=== PATIENT | female | born 1970 | race Caucasian/White ===

== ENCOUNTER 2021-03-03 15:52 | Emergency (ER) | payer OTHER, SELFPAY ==
[2021-03-03 15:52] VITALS: BP 145/65; PULSE 79; RESP 16; TEMP 38.1; O2SAT 86; BMI 33.6
--- NOTE | 2021-03-03 16:01 | CT_ITS ---
PROCEDURE INFORMATION: Exam: CT Abdomen And Pelvis Without Contrast Exam date and time: 03/03/2021 4:01 PM Age: 50 years old Clinical indication: Other: Difficulty urinating; Abdominal pain; Localized; Lower; Additional info: Lower abd pain TECHNIQUE: Imaging protocol: Computed tomography of the abdomen and pelvis without contrast. Radiation optimization: All CT scans at this facility use at least one of these dose optimization techniques: automated exposure control; mA and/or kV adjustment per patient size (includes targeted exams where dose is matched to clinical indication); or iterative reconstruction. COMPARISON: No relevant prior studies available. FINDINGS: Heart: Small pericardial effusion Liver: Normal. No mass. Gallbladder and bile ducts: Cholecystectomy Pancreas: Normal. No ductal dilation. Spleen: Normal. No splenomegaly. Adrenal glands: Normal. No mass. Kidneys and ureters: Subcentimeter low attenuation area in the left kidney is too small for characterization. Inflammatory changes around both kidneys are nonspecific but could represent infection in the appropriate clinical setting.. 14 mm simple cyst left kidney . No follow-up imaging recommended . Punctate nonobstructing right renal calculus. No ureteral calculus. Stomach and bowel: A few loops of fluid-filled small bowel with air-fluid levels may represent ileus. More distally the small bowel tapers.. Appendix: No evidence of appendicitis. Intraperitoneal space: Unremarkable. No free air. No significant fluid collection. Vasculature: Unremarkable. No abdominal aortic aneurysm. Lymph nodes: Unremarkable. No enlarged lymph nodes. Urinary bladder: Unremarkable as visualized. Reproductive: See Soft tissues finding. Bones/joints: Unremarkable. No acute fracture. Soft tissues: Inflammatory changes are seen in the right labia and adjacent to the right urethra. There are bubbles of air within the right urethra. This area is very inflamed and could represent infection. This also looks like necrotizing fasciitis prior to the development of the linear collections of air. . Umbilical hernia contains fat THIS REPORT CONTAINS FINDINGS THAT MAY BE CRITICAL TO PATIENT CARE. The findings were verbally communicated via telephone conference with RAJIV OLGUIN at 5:18 PM EDT on 03/03/2021. The findings were acknowledged and understood. IMPRESSION: 1. Inflammatory changes are seen in the right labia and adjacent to the right urethra. There are bubbles of air within the right urethra. This area is very inflamed and could represent infection. This also looks like necrotizing fasciitis prior to the development of the linear collections of air. . 2. A few loops of fluid-filled small bowel with air-fluid levels may represent ileus. More distally the small bowel tapers.. 3. Inflammatory changes around both kidneys are nonspecific but could represent infection in the appropriate clinical setting.. COMMENTS: Consistent with the [place] [employer]'s Incidental Findings Committee white paper (J Am Lucinda Radiol 2018): Any incidental renal lesion less than 1 cm or classified as too small to characterize, or any incidental cystic renal lesion characterized as simple-appearing, is likely benign. No follow-up imaging is recommended for these lesions per consensus recommendations based on imaging criteria.
--- NOTE | 2021-03-03 16:05 | PC.NURSE ---
Oxygen placed on pt.
--- NOTE | 2021-03-03 16:06 | XR_ITS ---
PROCEDURE INFORMATION: Exam: XR Chest Exam date and time: 03/03/2021 4:06 PM Age: 50 years old Clinical indication: Shortness of breath; Patient HX: SOA; Additional info: SOB TECHNIQUE: Imaging protocol: XR of the chest. Views: 1 view. COMPARISON: No relevant prior studies available. FINDINGS: Tubes, catheters and devices: Double-lumen catheter terminates in the superior vena cava. Lungs: Unremarkable. No consolidation. Pleural spaces: Unremarkable. No pleural effusion. No pneumothorax. Heart/Mediastinum: Unremarkable. No cardiomegaly. Bones/joints: Unremarkable. IMPRESSION: Double-lumen catheter terminates in the superior vena cava.
--- NOTE | 2021-03-03 16:06 | [facility].EDGENADL ---
ED Disposition Clinical Impression: ESRD on hemodialysis, Abscess of right Bartholin's gland, Necrotizing fasciitis of pelvic region and thigh Diabetes Qualifiers: Diabetes mellitus type: type 1 Diabetes mellitus complication status: with other specified complication Qualified Code(s): E10.69 - Type 1 diabetes mellitus with other specified complication Disposition: Xfer Critical Access Hosp Condition on Discharge: Serious Referrals: Provider,Referral, [Referring] - - Critical Care Critical Care Time: No Attestation: On 03/03/21, the high probability of a clinically significant, sudden or life threatening deterioration of the following system(s) required my full and direct attention, intervention and personal management. The time I documented below is in addition to time spent performing reported procedures but includes the following listed in this critical care notation. Medical Decision Making - Medical Records Medical records reviewed: Yes: I reviewed the patient's medical records. - Akira Inquiry Pt receiving controlled substance: No Vital Signs: 03/03/21 15:52 03/03/21 16:30 03/03/21 17:00 Temperature 100.6 F H Temperature Source Oral Pulse Rate 82 81 Pulse Rate [Radial] 79 Respiratory Rate 16 Blood Pressure 124/55 L 143/72 H Blood Pressure [Right Arm] 145/65 H Blood Pressure Mean [Right Arm] 91 Blood Pressure Position [Right Arm] Sitting 02 Sat by Pulse Oximetry 86 L 100 100 Oxygen Delivery Method Room Air - Lab Data Lab Results 03/03/21 16:23: Sodium 125 L, Potassium 4.1, Chloride 89 L, Carbon Dioxide 24, Anion Gap 16.1 H, BUN 41 H, Creatinine 5.80 H, Estimated Creat Clear 15, Estimated GFR 8 L*, Est GFR ( Amer) 9 L*, Glucose 287 H, Calcium 7.8 L, Total Bilirubin 1.4 H, AST 16, ALT 9 L, Alkaline Phosphatase 191 H, Total Protein 6.8, Albumin 3.7, Globulin 3.1, Albumin/Globulin Ratio 1.2 03/03/21 16:25: Urine Color Yellow, Urine Appearance Clear, Urine pH 7.0, Ur Specific [place] 1.020, Urine Protein 3+, Urine Glucose (UA) 3+, Urine Ketones Negative, Urine Blood 1+, Urine Nitrate Negative, Urine Bilirubin Negative, Urine Urobilinogen 0.2, Ur Leukocyte Esterase Negative, Urine RBC None, Urine WBC Occasional, Ur Squamous Epith Cells 10-20, Ur Renal Epithelial Cell Occasional, Amorphous Sediment 1+, Urine Bacteria None 03/03/21 16:25: WBC 14.4 H, RBC 3.26 L, Hgb 9.5 L, Hct 28.5 L, MCV 87.4, MCH 29.1, MCHC 33.3, RDW 16.4, Plt Count 230, MPV 7.1 L, Neut % (Auto) 88.9 H, Lymph % (Auto) 5.6 L, [place] % (Auto) 4.4, Eos % (Auto) 0.8, Baso % (Auto) 0.3, Neut # (Auto) 12.8 H, Lymph # (Auto) 0.8, [place] # (Auto) 0.6, Eos # (Auto) 0.1, Baso # (Auto) 0.0, Total Counted 100, Neutrophils % (Manual) 84 H, Lymphocytes % (Manual) 11, Monocytes % (Manual) 4, Eosinophils % (Manual) 1, Platelet Estimate Normal, RBC Morphology Normal Result diagrams: 03/03/21 16:25 03/03/21 16:23 Orders (Tests/Meds): ED MEDICATIONS Generic Name Dose Route Start Last Admin Trade Name Freq PRN Reason Stop Dose Admin Piperacillin Sod/Tazobactam 100 mls @ 200 mls/hr 03/03/21 17:30 Sod 4.5 gm/ Sodium Chloride IV 03/17/21 17:29 Q12H [facility] Protocol Sodium Chloride 1,000 mls @ 999 mls/hr 03/03/21 17:30 Sod Chlor 0.9% 1000ml Bag IV 03/03/21 18:30 .Q1H1M [facility] Miscellaneous 1 each 03/03/21 17:30 Vancomycin Consult Request * 04/02/21 17:29 CONSULT PHARMACY [facility] ORDERS Category Date Time Status Lactic Acid Stat Lab 03/03/21 16:23 Received Blood Culture Stat Micro 03/03/21 16:23 Received - Radiology Data #1 Image(s): Chest Image Reviewed: Yes I reviewed the patient's radiology results, Yes I have reviewed radiologist's interpretation IMPRESSION: Double-lumen catheter terminates in the superior vena cava. - CT Data CT Scan: Abdomen, Pelvis Time Received: 17:[address] Reviewed: Yes: I have reviewed the patient's CT results, I have viewed the radiologist's inte
[2021-03-03 16:30] VITALS: BP 124/55; PULSE 82; O2SAT 100
--- NOTE | 2021-03-03 16:34 | PC.NURSE ---
Ems brought in patient with IV in L hand. IV was infiltrated and new IV was started in RAC and labs were drawn.
[2021-03-03 16:35] LABS: Appearance,Urine CLEAR (Clear); Blood, Urine 1+ (Negative); Color,Urine YELLOW (Yellow); Glucose,Urine (UA) 3+ (Negative); Ketones,Urine Negative (Negative); Leukocyte Esterase,Urine Negative (Negative); Microscopic, Urine URINE MICROSCOPIC (MICROSCOPIC); Nitrate,Urine Negative (Negative); Protein,Urine 3+ (Negative); Urobilinogen,Urine 0.2 EU/dl (0.2)
[2021-03-03 16:36] LABS: Basophils % 0.3 % (0.1-2.0); Eosinophils # 0.1 K/mm3 (0.0-0.4); Eosinophils % 0.8 % (0.1-12.0); Hematocrit 28.5 % (37.0-47.0); Hemoglobin 9.5 g/dL (12.2-16.2); Lymphocytes # 0.8 K/mm3 (0.7-4.5); Lymphocytes % 5.6 % (10-50); Mean Corpuscular HGB Conc 33.3 g/dL (31.8-35.4); Mean Corpuscular Hemoglobin 29.1 pg (27.0-31.2); Mean Corpuscular Volume 87.4 fl (81-99); Mean Platelet Volume 7.1 fl (7.4-10.4); Monocytes # 0.6 K/mm3 (0.1-1.0); Monocytes % 4.4 % (1.7-9.3); Neutrophils # 12.8 K/mm3 (1.8-7.8); Neutrophils % 88.9 % (37.0-80.0); Platelet Count 230 K/mm3 (142-424); Red Blood Count 3.26 M/mm3 (4.20-5.40); Red Cell Distribution Width 16.4 % (11.5-17.5); White Blood Count 14.4 K/mm3 (4.8-10.8)
[2021-03-03 16:39] LABS: Bilirubin,Urine Negative (Negative); MANUAL DIFFERENTIAL MANUAL DIFFERENTIAL (MANUAL DIFF)
[2021-03-03 16:40] LABS: Chloride 89 mmol/L (98-107); Potassium 4.1 mmoL/L (3.5-5.1); Sodium 125 mmol/L (136-145)
[2021-03-03 16:42] LABS: Blood Urea Nitrogen 41 mg/dl (7-17); Creatinine Clearance Estimated 15 mL/min (50-200); Estimated Glomerular Filt Rate 8 ml/min (>60); GFR (African American) 9 ML/MIN (>60)
[2021-03-03 16:43] LABS: Alanine Aminotransferase 9 U/L (12-78); Albumin Level 3.7 g/dl (3.5-5.0); Albumin/Globulin Ratio 1.2 (1.1-1.8); Alkaline Phosphatase 191 U/L (38-126); Anion Gap 16.1 mEq/L (5-15); Aspartate Amino Transferase 16 U/L (14-36); Bilirubin,Total 1.4 mg/dl (0.2-1.3); Calcium 7.8 mg/dl (8.4-10.2); Carbon Dioxide 24 mmol/L (22.0-30.0); Globulin 3.1 g/dL (1.3-3.2); Glucose 287 mg/dl (74-100); Total Protein,Serum 6.8 g/dl (6.3-8.2)
--- NOTE | 2021-03-03 16:45 | PC.NURSE ---
pt to rad.
--- NOTE | 2021-03-03 16:45 | PC.NURSE ---
NOTIFIED OF CRITICAL CREATININE
[2021-03-03 16:50] LABS: Amorphous Sediment,Urine 1+ /lpf; Renal Epithelial Cells,Urine Occasional #/lpf (0); WBC,Urine Occasional #/hpf (0-3)
[2021-03-03 16:55] LABS: Eosinophils % 1 % (0-3); Lymphocytes % 11 % (10-50); Monocytes % 4 % (2-9); Neutrophils % 84 % (42-76); Total Cells Counted 100
[2021-03-03 16:56] LABS: Platelet Estimate Normal; RBC Morphology Normal
[2021-03-03 17:00] VITALS: BP 143/72; PULSE 81; O2SAT 100
--- NOTE | 2021-03-03 17:26 | PC.NURSE ---
calling ukgas at this time
[2021-03-03 17:30] VITALS: BP 131/64; PULSE 80; O2SAT 99
--- NOTE | 2021-03-03 17:32 | PC.NURSE ---
ALEKSANDAR SIU speaking with Dr Morrissey at [facility]
[2021-03-03 17:37] LABS: Lactic Acid 1.5 mmol/L (0.7-2.1)
[2021-03-03 18:00] VITALS: BP 129/68; PULSE 79; O2SAT 96
--- NOTE | 2021-03-03 19:00 | PC.NURSE ---
REPORT CALLED TO [facility]
--- NOTE | 2021-03-03 19:10 | PC.NURSE ---
[facility]
--- NOTE | 2021-03-03 19:10 | PC.NURSE ---
PT DID NOT RECEIVE VANC IN ED
[2021-03-03 19:14] VITALS: BP 116/59; PULSE 79; RESP 18; TEMP 37.7; O2SAT 98
== END 2021-03-03 19:16 | disposition short-term general hospital (02) ==
PROVIDERS: Emergency Provider Emergency Medicine; PCP Family Medicine
DX: R06.02 Shortness of breath (principal); N18.6 End stage renal disease; M72.6 Necrotizing fasciitis; E10.65 Type 1 diabetes mellitus with hyperglycemia; N75.1 Abscess of Bartholin's gland; Z79.4 Long term (current) use of insulin; Z79.899 Other long term (current) drug therapy
CPT/HCPCS: 71045; 74176; 80053; 81001; 83605; 85007; 85025; 87040; 96365; 96367; 96375; 99284; J2543